=== PATIENT | male | born 1980 | race Caucasian/White ===

== ENCOUNTER 2016-07-15 10:54 | Emergency (ER) | payer SELFPAY ==
[~2016-07-15] VITALS: Ht 188 cm; Wt 59.0 kg
[2016-07-15 10:56] VITALS: BP 129/91; PULSE 64; RESP 18; TEMP 98.2; O2SAT 98
[2016-07-15] MEDS ORDERED: METH40TA PO (11:03)
--- NOTE | 2016-07-15 11:07 | PD ---
HPI Chief Complaint: Medical Clearance Time Seen by Provider: 11:03 Travel History International Travel<30 days: Yes Contact w/Intl Traveler<30days: [place] Country Traveled to: [place] Traveled to known affect area: No History of Present Illness HPI 35-year-old male presents the emergency department requesting methadone dose. Patient states he's been out for 3 days and has been unable to get into his clinic. Patient's vital signs are stable. He has no other acute complaints. He has no known drug allergies. [facility] Past Medical History Medical History: Unable to Obtain Past Surgical History Surgical History: Unable to Obtain Social History Alcohol Use: Yes Tobacco Use: Yes Substance Use: No Allergies-Medications (Allergen,Severity, Reaction): Coded Allergies: No Known Allergies (Unverified , 07/15/16) Reported Meds & Prescriptions Reported Meds & Active Scripts Active Reported Methadone (Methadone HCl) 40 Mg Tab 120 Mg PO DAILY Review of Systems ROS Limitations: Other: (patient left the department prior to completing my exam.) Physical Exam Exam Limitations: Left before Exam Complete, Other: (patient left the department prior to completing my exam.) Narrative Patient was ambulatory to the room and ambulatory out of the room. Data Data Last Documented VS Vital Signs Date Time Temp Pulse Resp B/P Pulse Ox O2 Delivery O2 Flow Rate FiO2 07/15/16 10:56 98.2 64 18 129/91 98 MDM Medical Decision Making Medical Screen Exam Complete: No Emergency Medical Condition: No Differential Diagnosis History of narcotic abuse. Methadone refill request. Drug seeking behavior. Narrative Course I went in to see the patient explaining that our protocol here at [facility] is not give methadone for chronic narcotic abuse history. Patient elected to leave the department at that time. Diagnosis Primary Impression: Medication refill Condition: Stable Justyn Greene Jul 15, 2016 11:07
== END 2016-07-15 11:15 | disposition left against medical advice (07) ==
LOC: NEPB 10:54
DX: Z76.0 Encounter for issue of repeat prescription (principal); F19.20 Other psychoactive substance dependence, uncomplicated; Z92.29 Personal history of other drug therapy; Z72.0 Tobacco use; Z76.5 Malingerer [conscious simulation]
CPT/HCPCS: 99281